=== PATIENT | male | born 1955 | race Two or more races ===

== ENCOUNTER 2021-05-06 11:59 | Inpatient (IN) | payer OTHER ==
[~2021-05-06] VITALS: Ht 152.4 cm; Wt 59.9 kg
[2021-05-06 13:35] LABS: Hematocrit 39.3 % (41.0-53.0); Hemoglobin 13.1 g/dL (13.5-17.5); Mean Corpuscular Hgb Conc. 33.2 g/dL (32.0-36.0); Mean Corpuscular Volume 90.4 fL (80.0-100.0); Red Blood Cells 4.35 10^6/uL (4.5-5.90); Red Cell Distribution Width 14.4 % (11.8-14.3); White Blood Cell 25.8 10^3/uL (4.4-10.8)
[2021-05-06 13:43] LABS: Urine Bacteria NONE SEEN /hpf (None Seen); Urine Blood 3+ /uL (Negative); Urine Mucus FEW (None Seen); Urine Specific Gravity 1.016 (1.001-1.035); Urine WBC 439 /hpf (0 - 3); Urine WBC Clumps PRESENT /hpf (None Seen)
[2021-05-06 13:44] LABS: Basophils % (manual) 0 (0.0-2.0); Blast Cells 0; Eosinophils % (manual) 0 (0-7); Metamyelocytes % 0; Myelocytes % 0; Promyelocytes % 0; Reactive Lymphocytes 0
[2021-05-06] MEDS ORDERED: cefTRIAXone 1GM/50ML D5W 50 ML IV ONE (14:00)
[2021-05-06 14:03] LABS: Lactic Acid w/Reflex 3.3 mmol/L (0.4-2.0)
[2021-05-06 14:18] LABS: Band Neutrophils % (manual) 5; Lymphocytes % (manual) 2 (10.0-50.0); Monocytes % (manual) 7 (0-12)
[2021-05-06 16:30] LABS: Albumin 2.9 g/dL (3.4-5.0); Calcium 9.2 mg/dL (8.5-10.1); Potassium 4.6 mmol/L (3.5-5.1)
[2021-05-06] MEDS ORDERED: NITROGLYCERIN 0.4 MG SL TAB SL PRN (16:30)
[2021-05-06] MEDS ORDERED: MORPHINE SULFATE INJECTION 2 MG/ML SYRG IV PRN (16:30)
[2021-05-06] MEDS ORDERED: ACETAMINOPHEN 325 MG TAB PO PRN (16:30)
[2021-05-06 16:34] LABS: Bilirubin, Total 0.6 mg/dL (0.2-1.0); Total Protein 7.1 g/dL (6.4-8.2)
[2021-05-06] MEDS ORDERED: SODIUM CHLORIDE 0.9% 2,200 ML IV ONE (17:15)
[2021-05-06] MEDS ORDERED: SODIUM CHLORIDE 0.9% 1,000 ML IV ONE (17:15)
[2021-05-06] MEDS ORDERED: ATORVASTATIN 20 MG TAB PO ONE (17:15)
[2021-05-06] MEDS: PIPERACILLIN-TAZOB 2.25GM 50 ML IV SCH ×2 (18:45→23:20)
[2021-05-06] MEDS ORDERED: SODIUM CHLORIDE 0.9% 1,000 ML IV SCH (19:15)
[2021-05-06] MEDS ORDERED: ASPirin 300 MG RECTAL SUPP PR ONE (20:00)
[2021-05-06] MEDS ORDERED: LORazepam 2MG/ML-1ML VIAL IV PRN ×2 (20:30)
[2021-05-06] MEDS ORDERED: PIPERACILLIN-TAZO 4.5GM 100 ML IV SCH (22:00)
[2021-05-06 22:30] VITALS: BP 113/77
[2021-05-06 22:58] LABS: Folate (Folic Acid) 12.01 ng/mL (5.38-24)
[2021-05-06 23:00] VITALS: BP 121/75
[2021-05-06] MEDS: HEPARIN SODIUM (PORCINE) 5000 UNITS/ML 1ML VIAL SC SCH (23:19)
[2021-05-07] VITALS (12 sets, daily range): BP systolic 98–149; BP diastolic 53–80
[2021-05-07] MEDS: PIPERACILLIN-TAZOB 2.25GM 50 ML IV SCH ×2 (05:09→18:00)
[2021-05-07 08:53] LABS: Basophils # (auto) 0 10 ^3/uL (0-0.2); Basophils % (auto) 0.2 % (0.0-2.0); Eosinophils # (auto) 0 10 ^3/uL (0-0.8); Eosinophils % (auto) 0.1 % (0.0-7.0); Hematocrit 37.2 % (41.0-53.0); Hemoglobin 12.3 g/dL (13.5-17.5); Lymphocytes # (auto) 1.1 10 ^3/uL (0.4-5.4); Lymphocytes % (auto) 6.9 % (10.0-50.0); Mean Corpuscular Hemoglobin 30.3 pg (28.0-32.0); Mean Corpuscular Hgb Conc. 33.2 g/dL (32.0-36.0); Mean Corpuscular Volume 91.4 fL (80.0-100.0); Monocytes # (auto) 1.4 10 ^3/uL (0-1.3); Monocytes % (auto) 9.1 % (0.0-12.0); Neutrophils # (auto) 13.2 10 ^3/uL (1.6-8.6); Neutrophils % (auto) 83.7 % (37.0-80.0); Red Blood Cells 4.07 10^6/uL (4.5-5.90); Red Cell Distribution Width 14.1 % (11.8-14.3); White Blood Cell 15.7 10^3/uL (4.4-10.8)
[2021-05-07 09:02] LABS: Albumin 2.5 g/dL (3.4-5.0); Calcium 8.9 mg/dL (8.5-10.1); Potassium 4.3 mmol/L (3.5-5.1)
[2021-05-07 09:06] LABS: BUN/Creatinine Ratio 30.9; Bilirubin, Total 0.9 mg/dL (0.2-1.0); Total Protein 6.4 g/dL (6.4-8.2)
[2021-05-07] MEDS: HEPARIN SODIUM (PORCINE) 5000 UNITS/ML 1ML VIAL SC SCH ×2 (11:04→23:17)
[2021-05-07] MEDS: ASPirin 81 mg TAB PO SCH (11:05)
[2021-05-07] MEDS: SODIUM BICARBONATE 50ML VIAL 50 ML in D5W 5% 1,000 ML IV SCH ×2 (12:00→14:00)
[2021-05-08] MEDS ORDERED: levETIRAcetam 500 MG/5ML INJ IV ONE (00:19)
[2021-05-08] MEDS: PIPERACILLIN-TAZOB 2.25GM 50 ML IV SCH ×2 (01:39→05:55)
[2021-05-08] MEDS: SODIUM BICARBONATE 50ML VIAL 50 ML in D5W 5% 1,000 ML IV SCH (04:52)
[2021-05-08 05:44] LABS: Basophils # (auto) 0 10 ^3/uL (0-0.2); Basophils % (auto) 0.3 % (0.0-2.0); Eosinophils # (auto) 0.1 10 ^3/uL (0-0.8); Eosinophils % (auto) 0.6 % (0.0-7.0); Hematocrit 34.3 % (41.0-53.0); Hemoglobin 11.8 g/dL (13.5-17.5); Lymphocytes # (auto) 1.3 10 ^3/uL (0.4-5.4); Lymphocytes % (auto) 10.4 % (10.0-50.0); Mean Corpuscular Hemoglobin 30.6 pg (28.0-32.0); Mean Corpuscular Hgb Conc. 34.4 g/dL (32.0-36.0); Mean Corpuscular Volume 89.1 fL (80.0-100.0); Monocytes # (auto) 1.4 10 ^3/uL (0-1.3); Monocytes % (auto) 11.5 % (0.0-12.0); Neutrophils # (auto) 9.6 10 ^3/uL (1.6-8.6); Neutrophils % (auto) 77.2 % (37.0-80.0); Nucleated Red Blood Cells % 0.1 %; Red Blood Cells 3.85 10^6/uL (4.5-5.90); Red Cell Distribution Width 13.5 % (11.8-14.3); White Blood Cell 12.4 10^3/uL (4.4-10.8)
[2021-05-08 06:08] LABS: Potassium 3.5 mmol/L (3.5-5.1)
[2021-05-08 06:15] LABS: Albumin 2.4 g/dL (3.4-5.0); BUN/Creatinine Ratio 34.4; Bilirubin, Total 1.1 mg/dL (0.2-1.0); Calcium 8.9 mg/dL (8.5-10.1); Total Protein 6.4 g/dL (6.4-8.2)
[2021-05-08] MEDS: ASPirin 81 mg TAB PO SCH (10:00)
[2021-05-08] MEDS: HEPARIN SODIUM (PORCINE) 5000 UNITS/ML 1ML VIAL SC SCH ×2 (10:31→21:57)
[2021-05-08 12:24] LABS: Hepatitis C Antibody Negative (Negative)
[2021-05-08] MEDS: SOD CHL 0.45% 1,000 ML IV SCH ×2 (13:15→22:48)
[2021-05-08] MEDS ORDERED: PIPERACILLIN-TAZO 4.5GM 100 ML IV SCH (14:00)
[2021-05-08 16:00] VITALS: BP 142/87
[2021-05-08] MEDS: CIPROFLOXACIN HCL 500 MG TAB PO SCH (21:56)
[2021-05-08 22:00] VITALS: BP 130/80
[2021-05-09 05:00] VITALS: BP 130/83
[2021-05-09 08:22] VITALS: BP 131/89
[2021-05-09] MEDS: SOD CHL 0.45% 1,000 ML IV SCH (09:15)
[2021-05-09] MEDS: HEPARIN SODIUM (PORCINE) 5000 UNITS/ML 1ML VIAL SC SCH (10:00)
[2021-05-09] MEDS: CIPROFLOXACIN HCL 500 MG TAB PO SCH (10:00)
[2021-05-09] MEDS: ASPirin 81 mg TAB PO SCH (10:00)
[2021-05-09 12:27] VITALS: BP 156/80
[2021-05-09 15:19] VITALS: BP 110/56
== END 2021-05-09 16:25 | disposition hospice, home (50) | DRG 871 ==
LOC: ER 11:59 → EDBD 11:59 → TELE 16:27 → DOU IN ICU 22:20 → TELE-CENTR 05-07 14:05
PROVIDERS: ADMIT Hospitalist; ATTEND Hospitalist
DX: A41.9 Sepsis, unspecified organism (principal); I21.A1 Myocardial infarction type 2; J96.01 Acute respiratory failure with hypoxia; N17.0 Acute kidney failure with tubular necrosis; N39.0 Urinary tract infection, site not specified; R65.20 Severe sepsis without septic shock; G30.9 Alzheimer's disease, unspecified; G40.401 Other generalized epilepsy and epileptic syndromes, not intractable, with status epilepticus; F02.80 Dementia in other diseases classified elsewhere, unspecified severity, without behavioral disturbance, psychotic disturbance, mood disturbance, and anxiety; F17.200 Nicotine dependence, unspecified, uncomplicated; I25.10 Atherosclerotic heart disease of native coronary artery without angina pectoris; R00.0 Tachycardia, unspecified; Z20.822 Contact with and (suspected) exposure to COVID-19; R42 Dizziness and giddiness; N18.9 Chronic kidney disease, unspecified; Z66 Do not resuscitate; Z79.899 Other long term (current) drug therapy; Z80.9 Family history of malignant neoplasm, unspecified
CPT/HCPCS: 36415; 70450; 70551; 71045; 76775; 80053; 81001; 82306; 82570; 82607; 82746; 83605; 83735; 83970; 84100; 84156; 84300; 84443; 84484; 85007; 85025; 85027; 86803; 87040; 87077; 87081; 87086; 87088; 87186; 87340; 93005; 93306; 95819; 96361; 96365; 96367; 97116; 97163; 97530; G0378; J0696; J2543; J7060

== ENCOUNTER 2021-08-01 19:59 | Inpatient (IN) | payer OTHER ==
[~2021-08-01] VITALS: Ht 167.6 cm; Wt 58.3 kg
[2021-08-01] MEDS ORDERED: MORPHINE SULFATE 4 MG/ML SYR/VIAL IV ONE (21:00)
[2021-08-01] MEDS ORDERED: ONDANSETRON HCL 4 MG/2 ML VIAL IV ONE (21:00)
[2021-08-01] MEDS ORDERED: ACETAMINOPHEN 325 MG TAB PO PRN (22:15)
[2021-08-01] MEDS ORDERED: DOCUSATE SOD 100 MG CAP PO PRN (22:15)
[2021-08-01] MEDS ORDERED: ONDANSETRON HCL 4 MG/2 ML VIAL IV PRN (22:15)
[2021-08-01 22:26] LABS: Basophils # (auto) 0.1 10 ^3/uL (0-0.2); Eosinophils # (auto) 0.1 10 ^3/uL (0-0.8); Hemoglobin 10.7 g/dL (13.5-17.5); Lymphocytes # (auto) 2.1 10 ^3/uL (0.4-5.4)
[2021-08-01 22:28] LABS: Basophils % (auto) 1.1 % (0.0-2.0); Eosinophils % (auto) 1.4 % (0.0-7.0); Hematocrit 32.4 % (41.0-53.0); Lymphocytes % (auto) 21.7 % (10.0-50.0); Mean Corpuscular Hemoglobin 27.6 pg (28.0-32.0); Mean Corpuscular Hgb Conc. 32.9 g/dL (32.0-36.0); Monocytes % (auto) 9.9 % (0.0-12.0); Neutrophils # (auto) 6.5 10 ^3/uL (1.6-8.6); Neutrophils % (auto) 65.9 % (37.0-80.0); Red Blood Cells 3.85 10^6/uL (4.5-5.90); Red Cell Distribution Width 14.9 % (11.8-14.3); White Blood Cell 9.9 10^3/uL (4.4-10.8)
[2021-08-01 22:32] LABS: INR 1.11 (0.9-1.15); Partial Thromboplastin Time 27.9 sec (23.6-33.0)
[2021-08-01 22:34] LABS: Albumin 2.4 g/dL (3.4-5.0); Calcium 8.7 mg/dL (8.5-10.1)
[2021-08-01 22:37] LABS: BUN/Creatinine Ratio 31.3; Bilirubin, Total 0.1 mg/dL (0.2-1.0); Total Protein 6.7 g/dL (6.4-8.2)
[2021-08-01] MEDS ORDERED: MORPHINE SULFATE INJ 2 MG/ml SYRG IV PRN (23:00)
[2021-08-01] MEDS ORDERED: NITROGLYCERIN 0.4 MG SL TAB SL PRN (23:00)
[2021-08-01] MEDS: HYDROcodone-ACET 5/325MG TAB PO PRN (23:56)
[2021-08-02] MEDS: MORPHINE SULFATE INJ 2 MG/ml SYRG IV PRN (02:22)
[2021-08-02 05:00] VITALS: BP 120/60
[2021-08-02] MEDS: SODIUM CHLOR 0.9% PF (SALINE LOCK) 10ML VIAL/SYR IV SCH ×3 (05:36→21:08)
[2021-08-02] MEDS: HYDROcodone-ACET 5/325MG TAB PO PRN ×2 (06:18→13:39)
[2021-08-02 07:15] LABS: Urine Amorphous Crystal FEW /hpf (None Seen); Urine Bacteria NONE SEEN /hpf (None Seen); Urine Blood 2+ /uL (Negative); Urine Mucus FEW (None Seen); Urine Specific Gravity 1.016 (1.001-1.035); Urine WBC 202 /hpf (0 - 3)
[2021-08-02 08:00] VITALS: BP 122/79
[2021-08-02 08:19] LABS: Basophils # (auto) 0.1 10 ^3/uL (0-0.2); Eosinophils # (auto) 0.1 10 ^3/uL (0-0.8); Hemoglobin 10.9 g/dL (13.5-17.5); Nucleated Red Blood Cells % 0.1 %; White Blood Cell 9.2 10^3/uL (4.4-10.8)
[2021-08-02 08:23] LABS: Eosinophils % (auto) 1.4 % (0.0-7.0); Hematocrit 32.2 % (41.0-53.0); Lymphocytes # (auto) 1.8 10 ^3/uL (0.4-5.4); Lymphocytes % (auto) 19.9 % (10.0-50.0); Mean Corpuscular Hemoglobin 28.2 pg (28.0-32.0); Mean Corpuscular Hgb Conc. 33.7 g/dL (32.0-36.0); Mean Corpuscular Volume 83.5 fL (80.0-100.0); Monocytes # (auto) 0.9 10 ^3/uL (0-1.3); Monocytes % (auto) 9.4 % (0.0-12.0); Neutrophils # (auto) 6.3 10 ^3/uL (1.6-8.6); Neutrophils % (auto) 68.3 % (37.0-80.0); Red Blood Cells 3.86 10^6/uL (4.5-5.90); Red Cell Distribution Width 14.8 % (11.8-14.3)
[2021-08-02] MEDS ORDERED: TRAZ100T3 PO (08:24)
[2021-08-02] MEDS ORDERED: QUET50TA PO (08:24)
[2021-08-02] MEDS ORDERED: HYDR-4902 PO (08:24)
[2021-08-02 08:42] LABS: Potassium 4.1 mmol/L (3.5-5.1)
[2021-08-02 08:49] LABS: Albumin 2.4 g/dL (3.4-5.0); BUN/Creatinine Ratio 30.4; Bilirubin, Total 0.3 mg/dL (0.2-1.0); Calcium 8.7 mg/dL (8.5-10.1); Total Protein 6.6 g/dL (6.4-8.2)
[2021-08-02] MEDS: FAMOTIDINE (10MG/ML) 2ML VL IV SCH ×2 (10:00→21:08)
[2021-08-02] MEDS: ZINC SULFATE 220mg CAP or TAB PO SCH (10:00)
[2021-08-02] MEDS: MULTIPLE VITAMIN TAB PO SCH (10:00)
[2021-08-02] MEDS: ENOXAPARIN SOD 40 MG/0.4 ML SYRINGE SC SCH (10:00)
[2021-08-02] MEDS: ASCORBIC ACID 500 MG TAB PO SCH ×2 (10:00→21:08)
[2021-08-02 13:00] VITALS: BP 129/86
[2021-08-02 16:00] VITALS: BP 115/74
[2021-08-02] MEDS: traZODone HCL 50 MG TAB PO SCH (21:08)
[2021-08-02] MEDS: QUEtiapine FUMARATE 100 MG TAB PO SCH (21:08)
[2021-08-02 22:00] VITALS: BP 121/77
[2021-08-03] VITALS (7 sets, daily range): BP systolic 98–128; BP diastolic 49–81
[2021-08-03] MEDS: SODIUM CHLOR 0.9% PF (SALINE LOCK) 10ML VIAL/SYR IV SCH ×3 (05:11→21:16)
[2021-08-03 07:20] LABS: Basophils # (auto) 0.1 10 ^3/uL (0-0.2); Eosinophils # (auto) 0.1 10 ^3/uL (0-0.8); Eosinophils % (auto) 1.4 % (0.0-7.0); Red Cell Distribution Width 14.7 % (11.8-14.3)
[2021-08-03 07:22] LABS: Basophils % (auto) 0.8 % (0.0-2.0); Hematocrit 33.7 % (41.0-53.0); Hemoglobin 11.5 g/dL (13.5-17.5); Lymphocytes # (auto) 1.9 10 ^3/uL (0.4-5.4); Lymphocytes % (auto) 18.5 % (10.0-50.0); Mean Corpuscular Hemoglobin 28.5 pg (28.0-32.0); Mean Corpuscular Hgb Conc. 34.2 g/dL (32.0-36.0); Mean Corpuscular Volume 83.2 fL (80.0-100.0); Monocytes # (auto) 0.8 10 ^3/uL (0-1.3); Monocytes % (auto) 8.4 % (0.0-12.0); Neutrophils # (auto) 7.1 10 ^3/uL (1.6-8.6); Neutrophils % (auto) 70.9 % (37.0-80.0); Red Blood Cells 4.05 10^6/uL (4.5-5.90)
[2021-08-03] MEDS: cefTRIAXone 1GM/50ML D5W 50 ML IV SCH (09:08)
[2021-08-03] MEDS: FAMOTIDINE (10MG/ML) 2ML VL IV SCH ×2 (10:00→21:16)
[2021-08-03] MEDS: ENOXAPARIN SOD 40 MG/0.4 ML SYRINGE SC SCH (10:04)
[2021-08-03] MEDS: ASCORBIC ACID 500 MG TAB PO SCH ×2 (10:04→21:16)
[2021-08-03] MEDS: ZINC SULFATE 220mg CAP or TAB PO SCH (10:04)
[2021-08-03] MEDS: MULTIPLE VITAMIN TAB PO SCH (10:04)
[2021-08-03] MEDS: HYDROcodone-ACET 5/325MG TAB PO PRN (17:46)
[2021-08-03] MEDS: MORPHINE SULFATE INJ 2 MG/ml SYRG IV PRN (19:14)
[2021-08-03] MEDS: QUEtiapine FUMARATE 100 MG TAB PO SCH (21:15)
[2021-08-03] MEDS: traZODone HCL 50 MG TAB PO SCH (21:16)
[2021-08-04] VITALS (18 sets, daily range): BP systolic 91–121; BP diastolic 48–77
[2021-08-04 05:50] LABS: Basophils # (auto) 0.1 10 ^3/uL (0-0.2); Basophils % (auto) 0.9 % (0.0-2.0); Monocytes # (auto) 0.9 10 ^3/uL (0-1.3)
[2021-08-04 05:51] LABS: Eosinophils # (auto) 0.1 10 ^3/uL (0-0.8); Eosinophils % (auto) 1.4 % (0.0-7.0); Hematocrit 34.4 % (41.0-53.0); Hemoglobin 11.8 g/dL (13.5-17.5); Lymphocytes # (auto) 2.6 10 ^3/uL (0.4-5.4); Lymphocytes % (auto) 25.2 % (10.0-50.0); Mean Corpuscular Hemoglobin 28.4 pg (28.0-32.0); Mean Corpuscular Hgb Conc. 34.2 g/dL (32.0-36.0); Mean Corpuscular Volume 83.2 fL (80.0-100.0); Monocytes % (auto) 8.6 % (0.0-12.0); Neutrophils # (auto) 6.6 10 ^3/uL (1.6-8.6); Neutrophils % (auto) 63.9 % (37.0-80.0); Red Blood Cells 4.14 10^6/uL (4.5-5.90); White Blood Cell 10.3 10^3/uL (4.4-10.8)
[2021-08-04] MEDS: SODIUM CHLOR 0.9% PF (SALINE LOCK) 10ML VIAL/SYR IV SCH ×3 (06:06→22:00)
[2021-08-04 06:08] LABS: Potassium 3.6 mmol/L (3.5-5.1)
[2021-08-04 06:12] LABS: BUN/Creatinine Ratio 27.6; Calcium 9.1 mg/dL (8.5-10.1)
[2021-08-04] MEDS ORDERED: ceFAZolin 1GM/50ML 100 ML IV ONE (06:55)
[2021-08-04] MEDS ORDERED: TRANEXAMIC ACID 20 ML ONE (06:57)
[2021-08-04] MEDS ORDERED: EPINEPHrine HCL 1 MG/1 ML AMP ONE (06:57)
[2021-08-04] MEDS ORDERED: VANCOMYCIN HCL 1000 MG VL ONE (06:58)
[2021-08-04] MEDS ORDERED: MORPHINE SULF PF 5 MG/10 ML VIAL ONE (07:29)
[2021-08-04] MEDS ORDERED: fentaNYL CITRATE 100 MCG/2 ML VL ONE (07:29)
[2021-08-04] MEDS ORDERED: MIDAZOLAM HCL 2MG/2ML 2ml VIAL (1mg/ml) ONE (07:29)
[2021-08-04] MEDS ORDERED: PROPOFOL 10 MG/ML 20 ML IV ONE (07:30)
[2021-08-04] MEDS ORDERED: GLYCOPYRROLATE 0.2 MG/ML 1ML VIAL ONE (07:30)
[2021-08-04] MEDS ORDERED: KETAMINE HCL 10 ML ONE (07:30)
[2021-08-04] MEDS ORDERED: PHENYLEPHRINE HCL 10 MG/ML VL ONE (07:30)
[2021-08-04] MEDS ORDERED: BUPIVACAINE/DEXTROSE MPF 0.75% 2 ML AMP IT ONE (07:30)
[2021-08-04] MEDS ORDERED: ONDANSETRON HCL 4 MG/2 ML VIAL ONE (07:30)
[2021-08-04] MEDS ORDERED: ePHEDrine SULFATE 50 MG/ML AMP ONE (07:30)
[2021-08-04] MEDS: cefTRIAXone 1GM/50ML D5W 50 ML IV SCH (09:00)
[2021-08-04] MEDS: ASCORBIC ACID 500 MG TAB PO SCH ×2 (10:00→23:09)
[2021-08-04] MEDS: MULTIPLE VITAMIN TAB PO SCH (10:00)
[2021-08-04] MEDS: FAMOTIDINE (10MG/ML) 2ML VL IV SCH (10:00)
[2021-08-04] MEDS: ZINC SULFATE 220mg CAP or TAB PO SCH (10:00)
[2021-08-04] MEDS: LACTATED RINGER'S 1,000 ML IV SCH ×2 (10:15→12:12)
[2021-08-04] MEDS ORDERED: DexAMETHasone SOD PHOS 10MG/1ML VIAL INJ IV PRN (10:15)
[2021-08-04] MEDS ORDERED: KETOROLAC TROMETH 30 MG/ML 1ML VIAL IV PRN (10:15)
[2021-08-04] MEDS ORDERED: ONDANSETRON HCL 4 MG/2 ML VIAL IV PRN ×2 (10:15)
[2021-08-04] MEDS ORDERED: NALOXONE HCL 0.4 MG/ML VIAL IV PRN (10:15)
[2021-08-04] MEDS ORDERED: diphenhdrAMINE HCL 50 MG/1 ML VL IV PRN (10:15)
[2021-08-04] MEDS: ceFAZolin 1GM/50ML 50 ML IV SCH ×2 (13:43→23:06)
[2021-08-04] MEDS: SOD CHL 0.9%/ KCL 20MEQ 1,000 ML IV SCH (15:39)
[2021-08-04] MEDS: traZODone HCL 50 MG TAB PO SCH (23:07)
[2021-08-04] MEDS: QUEtiapine FUMARATE 100 MG TAB PO SCH (23:08)
[2021-08-05] VITALS (15 sets, daily range): BP systolic 92–130; BP diastolic 53–83
[2021-08-05] MEDS: SOD CHL 0.9%/ KCL 20MEQ 1,000 ML IV SCH ×5 (02:52→21:38)
[2021-08-05] MEDS: SODIUM CHLOR 0.9% PF (SALINE LOCK) 10ML VIAL/SYR IV SCH ×3 (05:25→21:39)
[2021-08-05] MEDS: ceFAZolin 1GM/50ML 50 ML IV SCH ×3 (05:25→21:38)
[2021-08-05 05:39] LABS: Basophils # (auto) 0.1 10 ^3/uL (0-0.2); Basophils % (auto) 0.9 % (0.0-2.0); Eosinophils # (auto) 0 10 ^3/uL (0-0.8); Eosinophils % (auto) 0.1 % (0.0-7.0); Hematocrit 28.2 % (41.0-53.0); Hemoglobin 9.6 g/dL (13.5-17.5); Lymphocytes # (auto) 2.1 10 ^3/uL (0.4-5.4); Lymphocytes % (auto) 15.9 % (10.0-50.0); Mean Corpuscular Hemoglobin 28.4 pg (28.0-32.0); Mean Corpuscular Volume 83.5 fL (80.0-100.0); Monocytes # (auto) 1.5 10 ^3/uL (0-1.3); Monocytes % (auto) 11.3 % (0.0-12.0); Neutrophils # (auto) 9.6 10 ^3/uL (1.6-8.6); Neutrophils % (auto) 71.8 % (37.0-80.0); Red Blood Cells 3.38 10^6/uL (4.5-5.90); Red Cell Distribution Width 14.9 % (11.8-14.3); White Blood Cell 13.4 10^3/uL (4.4-10.8)
[2021-08-05 06:00] LABS: Potassium 3.7 mmol/L (3.5-5.1)
[2021-08-05 06:05] LABS: BUN/Creatinine Ratio 31.1; Calcium 8.3 mg/dL (8.5-10.1)
[2021-08-05] MEDS: APIXABAN 5 MG TAB PO SCH ×2 (09:38→21:39)
[2021-08-05] MEDS: ZINC SULFATE 220mg CAP or TAB PO SCH (09:38)
[2021-08-05] MEDS: MULTIPLE VITAMIN TAB PO SCH (09:38)
[2021-08-05] MEDS: ASCORBIC ACID 500 MG TAB PO SCH (09:39)
[2021-08-05 13:13] LABS: Urine Bacteria NONE SEEN /hpf (None Seen); Urine Blood 2+ /uL (Negative); Urine Specific Gravity 1.012 (1.001-1.035); Urine WBC 152 /hpf (0 - 3)
[2021-08-05] MEDS: MORPHINE SULFATE INJ 2 MG/ml SYRG IV PRN (13:41)
[2021-08-05] MEDS: traZODone HCL 50 MG TAB PO SCH (21:39)
[2021-08-05] MEDS: QUEtiapine FUMARATE 100 MG TAB PO SCH (21:39)
[2021-08-06] VITALS (7 sets, daily range): BP systolic 106–123; BP diastolic 52–65
[2021-08-06] MEDS ORDERED: LOPERAMIDE HCL 2 MG CAP/TAB PO PRN (01:15)
[2021-08-06] MEDS: ceFAZolin 1GM/50ML 50 ML IV SCH ×3 (05:44→21:09)
[2021-08-06] MEDS: SODIUM CHLOR 0.9% PF (SALINE LOCK) 10ML VIAL/SYR IV SCH ×3 (05:44→21:06)
[2021-08-06 06:36] LABS: Basophils # (auto) 0.1 10 ^3/uL (0-0.2); Basophils % (auto) 0.6 % (0.0-2.0); Eosinophils # (auto) 0 10 ^3/uL (0-0.8); Eosinophils % (auto) 0.1 % (0.0-7.0); Hematocrit 31.6 % (41.0-53.0); Hemoglobin 10.7 g/dL (13.5-17.5); Lymphocytes % (auto) 13.1 % (10.0-50.0); Mean Corpuscular Hemoglobin 27.8 pg (28.0-32.0); Mean Corpuscular Hgb Conc. 33.8 g/dL (32.0-36.0); Mean Corpuscular Volume 82.5 fL (80.0-100.0); Monocytes # (auto) 1.3 10 ^3/uL (0-1.3); Monocytes % (auto) 8.8 % (0.0-12.0); Neutrophils # (auto) 11.7 10 ^3/uL (1.6-8.6); Neutrophils % (auto) 77.4 % (37.0-80.0); Red Blood Cells 3.83 10^6/uL (4.5-5.90); Red Cell Distribution Width 15.3 % (11.8-14.3); White Blood Cell 15.2 10^3/uL (4.4-10.8)
[2021-08-06] MEDS: SOD CHL 0.9%/ KCL 20MEQ 1,000 ML IV SCH ×3 (06:53→16:13)
[2021-08-06 06:54] LABS: BUN/Creatinine Ratio 25.9; Calcium 8.4 mg/dL (8.5-10.1); Potassium 3.8 mmol/L (3.5-5.1)
[2021-08-06] MEDS: APIXABAN 5 MG TAB PO SCH ×2 (08:31→21:06)
[2021-08-06] MEDS: QUEtiapine FUMARATE 100 MG TAB PO SCH (21:05)
[2021-08-06] MEDS: traZODone HCL 50 MG TAB PO SCH (21:05)
[2021-08-07] MEDS: SOD CHL 0.9%/ KCL 20MEQ 1,000 ML IV SCH (01:43)
[2021-08-07 05:00] VITALS: BP 103/57
[2021-08-07] MEDS: ceFAZolin 1GM/50ML 50 ML IV SCH ×2 (05:31→13:09)
[2021-08-07] MEDS: SODIUM CHLOR 0.9% PF (SALINE LOCK) 10ML VIAL/SYR IV SCH (05:31)
[2021-08-07 05:46] LABS: Potassium 4.1 mmol/L (3.5-5.1)
[2021-08-07 05:55] LABS: Calcium 8.5 mg/dL (8.5-10.1)
[2021-08-07 08:00] VITALS: BP 116/60
[2021-08-07 08:04] LABS: Basophils # (auto) 0.3 10 ^3/uL (0-0.2); Basophils % (auto) 2.3 % (0.0-2.0); Eosinophils # (auto) 0.1 10 ^3/uL (0-0.8); Eosinophils % (auto) 0.8 % (0.0-7.0); Hematocrit 28.6 % (41.0-53.0); Hemoglobin 9.4 g/dL (13.5-17.5); Lymphocytes # (auto) 1.7 10 ^3/uL (0.4-5.4); Lymphocytes % (auto) 14.2 % (10.0-50.0); Mean Corpuscular Hemoglobin 27.7 pg (28.0-32.0); Mean Corpuscular Volume 83.9 fL (80.0-100.0); Monocytes # (auto) 1.1 10 ^3/uL (0-1.3); Monocytes % (auto) 9.3 % (0.0-12.0); Neutrophils # (auto) 8.6 10 ^3/uL (1.6-8.6); Neutrophils % (auto) 73.4 % (37.0-80.0); Red Blood Cells 3.41 10^6/uL (4.5-5.90); Red Cell Distribution Width 15.6 % (11.8-14.3); White Blood Cell 11.7 10^3/uL (4.4-10.8)
[2021-08-07] MEDS: APIXABAN 5 MG TAB PO SCH (08:26)
[2021-08-07 10:32] VITALS: BP 116/60
[2021-08-07 13:00] VITALS: BP 106/57
== END 2021-08-07 15:25 | DRG 522 ==
LOC: ER 19:59 → OVERFLOW 22:52 → EAST 08-02 02:05 → WEST WING 08-04 11:03 → TELE-WESTW 08-04 23:58 → WEST WING 08-05 20:03
PROVIDERS: ADMIT Nurse Practitioner Family; ATTEND Family Medicine
PROC: 0SRR0J9 Replacement of Right Hip Joint, Femoral Surface with Synthetic Substitute, Cemented, Open Approach (ICD-10-PCS; principal; 2021-08-04 07:39)
DX: S72.001A Fracture of unspecified part of neck of right femur, initial encounter for closed fracture (principal); I82.411 Acute embolism and thrombosis of right femoral vein; N39.0 Urinary tract infection, site not specified; I82.431 Acute embolism and thrombosis of right popliteal vein; I82.441 Acute embolism and thrombosis of right tibial vein; E44.1 Mild protein-calorie malnutrition; Z20.822 Contact with and (suspected) exposure to COVID-19; F02.80 Dementia in other diseases classified elsewhere, unspecified severity, without behavioral disturbance, psychotic disturbance, mood disturbance, and anxiety; G30.9 Alzheimer's disease, unspecified; D75.839 Thrombocytosis, unspecified; E88.09 Other disorders of plasma-protein metabolism, not elsewhere classified; W18.39XA Other fall on same level, initial encounter; Y93.89 Activity, other specified; Y92.89 Other specified places as the place of occurrence of the external cause; Y99.8 Other external cause status; Z99.3 Dependence on wheelchair; Z68.20 Body mass index [BMI] 20.0-20.9, adult
CPT/HCPCS: 36415; 70450; 71045; 72170; 73502; 80048; 80053; 81001; 85025; 85610; 85730; 86850; 86900; 86901; 87045; 87086; 87427; 87493; 93005; 93971; 96365; 96375; 97110; 97116; 97163; 97530; A4565; G0378; J0171; J0690; J0696; J1885; J2250; J2405; J2704

== ENCOUNTER 2021-09-13 09:05 | Emergency (ER) | payer MEDICARE, MEDICAID ==
[~2021-09-13] VITALS: Ht 172.7 cm; Wt 120.0 kg
[~2021-09-13 09:05] MED LIST: HYDR-4902 PO; QUET50TA PO; TRAZ100T3 PO
[2021-09-13 11:44] LABS: Albumin 3.2 g/dL (3.4-5.0); Calcium 9.4 mg/dL (8.5-10.1); Potassium 4.4 mmol/L (3.5-5.1)
[2021-09-13 11:49] LABS: Bilirubin, Total 0.3 mg/dL (0.2-1.0); Total Protein 7.4 g/dL (6.4-8.2)
[2021-09-13 12:12] LABS: Basophils # (auto) 0.1 10 ^3/uL (0-0.2); Basophils % (auto) 1.1 % (0.0-2.0); Eosinophils # (auto) 0.1 10 ^3/uL (0-0.8); Eosinophils % (auto) 1.4 % (0.0-7.0); Hematocrit 40.4 % (41.0-53.0); Hemoglobin 12.5 g/dL (13.5-17.5); Lymphocytes # (auto) 2.1 10 ^3/uL (0.4-5.4); Lymphocytes % (auto) 21.2 % (10.0-50.0); Mean Corpuscular Hemoglobin 25.7 pg (28.0-32.0); Mean Corpuscular Volume 82.8 fL (80.0-100.0); Monocytes % (auto) 9.6 % (0.0-12.0); Neutrophils # (auto) 6.6 10 ^3/uL (1.6-8.6); Neutrophils % (auto) 66.7 % (37.0-80.0); Red Blood Cells 4.88 10^6/uL (4.5-5.90); Red Cell Distribution Width 17.6 % (11.8-14.3); White Blood Cell 9.9 10^3/uL (4.4-10.8)
[2021-09-13 12:56] LABS: INR 1.04 (0.9-1.15); Partial Thromboplastin Time 30.8 sec (24.6-33.4)
[2021-09-13 16:06] VITALS: BP 133/76
[2021-09-13] MEDS ORDERED: APIX5TAB PO (16:25)
[2021-09-13] MEDS ORDERED: APIXABAN 5 MG TAB PO SCH (22:00)
== END 2021-09-13 19:18 | disposition home or self-care (01) ==
LOC: ER 09:05 → EDBD 09:05 → ER 19:16
DX: I82.401 Acute embolism and thrombosis of unspecified deep veins of right lower extremity (principal)
CPT/HCPCS: 36415; 80053; 83880; 85025; 85610; 85730; 93005; 93971